=== PATIENT | female | born 1940 | race American Indian/Alaskan Native ===

== ENCOUNTER 2017-01-16 12:17 | Inpatient (IN) | payer MEDICARE ==
--- NOTE | 2017-01-16 13:09 | ED PDOC ---
Arrival/HPI - General Chief Complaint: Back Pain Time Seen by Provider: 01/16/17 12:36 Historian: Patient, Family (Son) - History of Present Illness Narrative History of Present Illness (Text): 01/16/17 13:06 76 year old female whose past medical history includes hypertension, hypercholesterolemia, anemia, gastric ulcers and dementia presents to the emergency department with worsening back pain since yesterday. Son states that she is unable to walk. He found her in bed today complaining about severe back pain. Patient also reported chest pain today that she is unable to describe and son notes that she complains of this and a headache from time to time for weeks. No recent trauma or injury. No urinary or bowel incontinence. No motor weakness. PMD: Dr. Sanches (Non-[facility]) Time/Duration: < week Symptom Onset: Gradual Symptom Course: Unchanged Modifying Factors (Text): None Associated Symptoms (Text): None Past Medical History - Provider Review Nursing Documentation Reviewed: Yes - Infectious Disease Hx of Infectious Diseases: None - Tetanus Immunization Tetanus Immunization: Unknown - Past Medical History Past Medical History: No Previous - Cardiac Hx Hypertension: Yes Hx Pacemaker: No - Pulmonary Hx Pneumonia: Yes - Neurological Hx Alzheimer's Disease: Yes Hx Dementia: Yes - HEENT Hx HEENT Disorder: Yes Hx Cataracts: Yes (BILATERAL CATARACT SURGERY) Hx Glaucoma: Yes Other/Comment: WEARS RX GLASSES - Renal Hx Kidney Stones: Yes - Endocrine/Metabolic Hx Endocrine Disorders: No - Hematological/Oncological Hx Anemia: Yes - Integumentary Hx Dermatological Disorder: No - Musculoskeletal/Rheumatological Hx Arthritis: Yes - Gastrointestinal Hx Gastrointestinal Disorders: Yes - Genitourinary/Gynecological Other/Comment: OVARIAN CYSTS,PARTIAL HYSTERECTOMY - Psychiatric Hx Depression: No Hx Emotional Abuse: No Hx Physical Abuse: No Hx Substance Use: No - Surgical History Hx Orthopedic Surgery: Yes (right arm) - Anesthesia Hx Anesthesia Reactions: No - Suicidal Assessment Feels Threatened In Home Enviroment: No Family/Social History - Physician Review Nursing Documentation Reviewed: Yes Family/Social History: Unknown Family HX Smoking Status: Never Smoked Hx Alcohol Use: No Hx Substance Use: No Hx Substance Use Treatment: No Allergies/Home Meds Allergies/Adverse Reactions: Allergies No Known Allergies Allergy (Verified 01/16/17 12:23) Home Medications: Home Meds Medication Instructions Recorded Confirmed Donepezil [Aricept] 10 mg PO DAILY 01/25/13 01/16/17 Losartan/Hydrochlorothiazide 1 tab PO DAILY 01/25/13 01/16/17 [Hyzaar 12.5 mg-100 mg] Simvastatin [Simvastatin] 20 mg PO DAILY 01/25/13 01/16/17 Propranolol [Inderal] 10 mg PO BID 01/16/17 01/16/17 Sertraline [Zoloft] 15 mg PO HS 01/16/17 01/16/17 amLODIPine [Norvasc] 5 mg PO DAILY 01/16/17 01/16/17 Review of Systems - Review of Systems Systems not reviewed;Unavailable: Dementia Physical Exam - Physical Exam Narrative Physical Exam (Text): Constitutional: No acute distress. Head: Normocephalic. Atraumatic. Eyes: PERRL. ENT: Moist mucous membranes. Neck: Supple. Cardiovascular: Regular rate. Chest: No tenderness. Respiratory: Clear to auscultation bilaterally. GI: Soft. Nontender. Nondistended. Back: No CVA tenderness. No midline tenderness. Bilateral lumbar tenderness. Musculoskeletal: No tenderness or swelling of extremities. Skin: No rash. Neurologic: Alert. Baseline dementia. Moves bilateral legs and arms. Vital Signs Reviewed: Yes Vital Signs Temp Pulse Resp BP Pulse Ox 01/16/17 12:30 98.8 F 63 16 149/90 98 Temperature: Afebrile Blood Pressure: Normal Pulse: Regular Respiratory Rate: Normal Appearance: Positive for: Well-Appearing, Non-Toxic, Comfortable Pain Distress: None Mental Status: Positive for: other (Baseline dementia) Medical Decision Making ED Course and Treatment: Impression: 76 year old female whose past medical history includes hypertension , hypercholesterolemia, anemia, gastric ulcers and dementia presents to the emergency department with worsening back pain since yesterday. Differential Diagnosis include but are not limited to: Plan: -- CT Abdomen/Pelvis, EKG, Chest X-ray -- Tylenol -- Labs -- Reassess and disposition Prior Visits: Notes and results from previous visits were reviewed. Patient last seen in ED on 02/01/13 for abdominal pain and discharged home. Progress Notes: EKG shows NSR at [address]/T wave changes. Interpreted by me. PROCEDURE: CT Abdomen and Pelvis without contrast. Facing Slitter : Karolina Colón MD IMPRESSION: Moderate stool burden in the rectosigmoid colon suggestive of constipation. The bowel is suboptimally seen otherwise. No bowel obstruction. 1.4 centimeters cystic structure in the left adnexa. Follow-up with ultrasound can be obtained if indicated. Small pulmonary nodules as above. If indicated according to protocol, 6-12 month follow-up CT can be obtained. Mild pericardial effusion. CT shows degenerative disease with osteoporosis and scoliosis but no acute findings or fracture. Will keep patient for pain control and evaluation for rehab as patient can not walk or take care of self and will be unsafe discharge. - Lab Interpretations Lab Results: 01/16/17 13:40 01/16/17 13:40 Lab Results 01/16/17 13:40: Urine Color Yellow, Urine Appearance Sl cloudy, Urine pH 7.0, Ur Specific [place] 1.010, Urine Protein 30 H, Urine Glucose (UA) Negative, Urine Ketones Negative, Urine Blood Trace-lysed H, Urine Nitrate Negative, Urine Bilirubin Negative, Urine Urobilinogen 0.2, Ur Leukocyte Esterase Negative , Urine RBC 0 - 2, Urine WBC 0 - 2, Ur Epithelial Cells 0 - 2 01/16/17 13:40: WBC 6.4, RBC 3.86, Hgb 11.2 L, Hct 32.6 L, MCV 84.5, MCH 29.0, MCHC 34.4, RDW 14.1, Plt Count 239, MPV 10.2, Gran % 73.0 H, Lymph % (Auto) 17.4 L, Roberts % (Auto) 9.2 H, Eos % (Auto) 0.2 L, Baso % (Auto) 0.2, Gran # 4.69 , Lymph # 1.1 L, Roberts # 0.6, Eos # 0.0, Baso # 0.01 01/16/17 13:40: Sodium 141, Potassium 3.7, Chloride 100, Carbon Dioxide 28, Anion Gap 17, BUN 11, Creatinine 0.9, Est GFR ( Amer) > 60, Est GFR (Non- Af Amer) > 60, Random Glucose 91, Calcium 9.7, Total Bilirubin 0.8, AST 24, ALT 22, Alkaline Phosphatase 133, Total Creatine Kinase < 20 L, Troponin I < 0.01, Total Protein 8.9 H, Albumin 4.8, Globulin 4.1, Albumin/Globulin Ratio 1.2, Lipase 152 - RAD Interpretation Radiology Orders: 01/16/17 13:08 CHEST PORTABLE [RAD] Stat 01/16/17 13:09 ABD & PELVIS W/O PO OR IV CONT [CT] Stat Web Retailer: Radiologist - EKG Interpretation Interpreted by ED Physician: Yes Type: 12 lead EKG - Medication Orders Current Medication Orders: Discontinued Medications Acetaminophen (Tylenol 325mg Tab) 650 mg PO STAT STA Stop: 01/16/17 13:08 Last Admin: 01/16/17 13:45 Dose: 650 mg - Scribe Statement The provider has reviewed the documentation as recorded by the Jerry Santos Provider Scribe Attestation: All medical record entries made by the Jerry were at my direction and personally dictated by me. I have reviewed the chart and agree that the record accurately reflects my personal performance of the history, physical exam, medical decision making, and the department course for this patient. I have also personally directed, reviewed, and agree with the discharge instructions and disposition. Disposition/Present on Arrival - Present on Arrival Any Indicators Present on Arrival: No History of DVT/PE: No History of Uncontrolled Diabetes: No Urinary Catheter: No History of Decub. Ulcer: No History Surgical Site Infection Following: None - Disposition Have Diagnosis and Disposition been Completed?: Yes Diagnosis: Back pain, Decreased ambulation status Disposition: HOSPITALIZED Disposition Time: 14:25 Patient Plan: Admission Condition: STABLE Referrals: Mckenzie Sanches MD [Primary Care Provider] - Follow up with primary
[2017-01-16 13:48] LABS: ADD MANUAL DIFF? NO
[2017-01-16 13:59] LABS: BASO # 0.01 K/mm3 (0.0-2.0); BASO % 0.2 % (0.0-3.0); EOS % 0.2 % (1.5-5.0); GRAN # 4.69 (1.4-6.5); HEMATOCRIT 32.6 % (36.0-48.0); LYMPH # 1.1 (1.2-3.4); LYMPH % 17.4 % (22.0-35.0); MEAN CELL VOLUME 84.5 fL (80.0-105.0); MEAN CORPUSCULAR HGB CONC 34.4 g/dl (31.0-37.0); MEAN PLATELET VOLUME 10.2 fl (7.0-11.0); MONO # 0.6 (0.1-0.6); MONO % 9.2 % (1.0-6.0); PLATELET COUNT 239 10^3/uL (120.0-450.0); RED CELL DISTRIBUTION WIDTH 14.1 % (11.5-14.5); URINE BILIRUBIN NEGATIVE (NEGATIVE); URINE BLOOD TRACE-LYSED (NEGATIVE); URINE GLUCOSE (UA) NEGATIVE (NEGATIVE); URINE KETONE NEGATIVE (NEGATIVE); URINE LEUKOCYTE ESTERASE NEGATIVE Leu/uL (NEGATIVE); URINE PROTEIN 30 mg/dL (<30 mg/dL); URINE UROBILINOGEN 0.2 E.U./dL (<1 E.U./dL); WHITE BLOOD COUNT 6.4 10^3/ul (4.5-11.0)
[2017-01-16 14:03] LABS: URINE APPEARANCE SL CLOUDY (CLEAR); URINE COLOR YELLOW (YELLOW)
[2017-01-16 14:09] LABS: ALB/GLOB RATIO 1.2 (1.1-1.8); ALKALINE PHOSPHATASE 133 U/L (38-133); ALT/SGPT 22 U/L (7-56); AST/SGOT 24 U/L (15-39); BILIRUBIN,TOTAL 0.8 mg/dL (0.2-1.3); BLOOD UREA NITROGEN 11 mg/dL (7-21); CALCIUM 9.7 mg/dL (8.4-10.5); CARBON DIOXIDE 28 mmol/L (21-33); CHLORIDE 100 mmol/L (98-107); GFR AFRICAN-AMERICAN > 60; GLUCOSE,RANDOM 91 mg/dL (70-110); LIPASE 152 U/L (23-300); POTASSIUM 3.7 mmol/L (3.6-5.0); SODIUM 141 mmol/L (132-148); TOTAL PROTEIN 8.9 g/dL (5.8-8.3)
[2017-01-16 14:14] LABS: URINE EPITHELIAL CELLS 0 - 2 /hpf (0-5); URINE RBC 0 - 2 /hpf (0-2); URINE WBC 0 - 2 /hpf (0-6)
--- NOTE | 2017-01-16 14:19 | CT ---
PROCEDURE: CT Abdomen and Pelvis without contrast. HISTORY: severe back pain COMPARISON: None. TECHNIQUE: Contiguous axial images of the abdomen and pelvis. No oral or IV contrast given. Coronal and Sagittal reformats generated. Please note that due to lack of intravenous and oral contrast, evaluation of soft tissue structures and bowel is limited. Radiation dose: Total exam DLP = 189.27 mGy-cm. This CT exam was performed using one or more of the following dose reduction techniques: Automated exposure control, adjustment of the mA and/or kV according to patient size, and/or use of iterative reconstruction technique. FINDINGS: LOWER THORAX: Two 3-4 millimeter nodules in the left lower lobe. Mild bibasilar atelectatic changes noted. The heart is not significantly enlarged. Small pericardial effusion. Coronary artery calcifications. LIVER: Unremarkable. No gross lesion or ductal dilatation. GALLBLADDER AND BILE DUCTS: Unremarkable. PANCREAS: Pancreatic parenchyma suboptimally seen. Mild dilatation of the pancreatic duct. SPLEEN: Unremarkable. No splenomegaly. ADRENALS: Nodular thickening of the left adrenal gland. Left adrenal nodule measures approximately 1.2 centimeters. KIDNEYS AND URETERS: Both kidneys are symmetric in size. Punctate calcification in the superior pole of the left kidney. No hydronephrosis. The course of the ureters suboptimally seen. BLADDER: Grossly unremarkable. REPRODUCTIVE: Please note that evaluation of gynecologic organs is not optimal on CT imaging. 1.4 centimeter cystic structure in the left adnexa. This is best seen on image 106, series 2. APPENDIX: Appendix not clearly seen. BOWEL: Moderate stool burden in the rectosigmoid colon. No bowel obstruction. Otherwise the bowel is suboptimally seen. Small hiatal hernia. Collapsed stomach. PERITONEUM: Unremarkable. No fluid collection. No free air. LYMPH NODES: No bulky intra-abdominal or intrapelvic lymphadenopathy. Mild retroperitoneal and inguinal region lymph nodes noted. Few scattered mesenteric lymph nodes seen. VASCULATURE: Extremely tortuous aorta. Mild ectasia of the proximal abdominal aorta. Mild atherosclerotic calcification in the abdominal aorta and its main branches. Mild ectasia of bilateral common iliac arteries. BONES: Generalized osteopenia. Heterogeneous density within the osseous structures. Extensive degenerative changes of the spine. No definite significant compressive deformity identified. Extensive facet hypertrophy. Extensive intervertebral disc space narrowing and L2-L3, L3-L4 and L4-L5. OTHER FINDINGS: None. IMPRESSION: Moderate stool burden in the rectosigmoid colon suggestive of constipation. The bowel is suboptimally seen otherwise. No bowel obstruction. 1.4 centimeters cystic structure in the left adnexa. Follow-up with ultrasound can be obtained if indicated. Small pulmonary nodules as above. If indicated according to protocol, 6-12 month follow-up CT can be obtained. Mild pericardial effusion.
[2017-01-16 14:21] LABS: TROPONIN I < 0.01 ng/mL
--- NOTE | 2017-01-16 14:48 | RAD ---
PROCEDURE: CHEST RADIOGRAPH, 1 VIEW HISTORY: r/o PNA COMPARISON: None available. FINDINGS: LUNGS: Clear. PLEURA: No pneumothorax or pleural fluid seen.Biapical pleural parenchymal thickening noted. CARDIOVASCULAR: Normal. OSSEOUS STRUCTURES: The osseous structures demonstrate degenerative changes. VISUALIZED UPPER ABDOMEN: Normal. OTHER FINDINGS: None. IMPRESSION: Clear lungs.Please note that chest radiographs have low sensitivity for small pulmonary nodules. If indicated, chest CT should be obtained.
[2017-01-16] MEDS ORDERED: Acetaminophen 650mg/20.3ml solution UD PO PRN (15:15)
[2017-01-16] MEDS: Meloxicam 7.5 MG TAB PO SCH (16:11)
[2017-01-16 16:36] VITALS: BMI 18.3
[2017-01-17] MEDS: Enoxaparin 40 mg Syringe SC SCH (09:19)
[2017-01-17] MEDS: Meloxicam 7.5 MG TAB PO SCH (09:22)
--- NOTE | 2017-01-17 11:40 | CARD ---
APPROVED REPORT EKG Measurement Heart [id number] <Conclusion> Normal sinus rhythm Normal ECG
[2017-01-17 21:05] VITALS: TEMP 98.1
--- NOTE | 2017-01-17 21:10 | CP.PCM.HP ---
History of Present Illness - History of Present Illness History of Present Illness: A 76 yr old female with hx of HTN, DEMENTIA, arthritis ,HLD dependant on ADL\ IDL came with hx of back pain , sudden unable to walk\move . denies radiation, localized to lower back , 10\10, sharp, aching . denies trauma\fall hx obtained through son. Present on Admission - Present on Admission Any Indicators Present on Admission: No Review of Systems - Constitutional Constitutional: absent: Chills, Fever, Weight Loss - EENT Eyes: absent: Loss of Vision Ears: Decreased Hearing Nose/Mouth/Throat: absent: Dysphagia, Sore Throat - Cardiovascular Cardiovascular: absent: Chest Pain, Dyspnea, Lightheadedness, Syncope - Respiratory Respiratory: absent: Cough, Wheezing, Excessive Mucous Production - Gastrointestinal Gastrointestinal: absent: Abdominal Pain, Change in Bowel Habits, Nausea, Vomiting - Genitourinary Genitourinary: absent: Difficulty Urinating, Nocturia, Urinary Urgency - Musculoskeletal Musculoskeletal: Back Pain, Limited Range of Motion, Myalgias - Integumentary Integumentary: absent: Sores, Wounds - Neurological Neurological: absent: Behavioral Changes, Focal Weakness, Vertigo - Endocrine Endocrine: Fatigue Past Patient History - Infectious Disease Hx of Infectious Diseases: None - Tetanus Immunizations Tetanus Immunization: Unknown - Past Social History Smoking Status: Never Smoked - CARDIAC Hx Hypertension: Yes - PULMONARY Hx Pneumonia: Yes - NEUROLOGICAL Hx Alzheimer's Disease: Yes Hx Dementia: Yes - HEENT Hx HEENT Problems: Yes Hx Cataracts: Yes (BILATERAL CATARACT SURGERY) Hx Glaucoma: Yes Other/Comment: WEARS RX GLASSES - RENAL Hx Kidney Stones: Yes - ENDOCRINE/METABOLIC Hx Endocrine Disorders: No - HEMATOLOGICAL/ONCOLOGICAL Hx Anemia: Yes - INTEGUMENTARY Hx Dermatological Problems: No - MUSCULOSKELETAL/RHEUMATOLOGICAL Hx Falls: No - GASTROINTESTINAL Hx Gastrointestinal Disorders: Yes - GENITOURINARY/GYNECOLOGICAL Other/Comment: OVARIAN CYSTS,PARTIAL HYSTERECTOMY - PSYCHIATRIC Hx Depression: No Hx Emotional Abuse: No Hx Physical Abuse: No - SURGICAL HISTORY Hx Orthopedic Surgery: Yes (right arm) - ANESTHESIA Hx Anesthesia Reactions: No Meds Allergies/Adverse Reactions: Allergies Allergy/AdvReac Type Severity Reaction Status Date / Time No Known Allergies Allergy Verified 01/16/17 12:23 Physical Exam - Constitutional Appears: No Acute Distress - Head Exam Head Exam: ATRAUMATIC, NORMAL INSPECTION - Eye Exam Eye Exam: EOMI, PERRL - ENT Exam ENT Exam: Normal Exam - Neck Exam Neck exam: Positive for: Normal Inspection. Negative for: Lymphadenopathy - Respiratory Exam Respiratory Exam: Clear to Auscultation Bilateral, NORMAL BREATHING PATTERN. absent: Accessory Muscle Use, Wheezes - Cardiovascular Exam Cardiovascular Exam: REGULAR RHYTHM, +S1, +S2. absent: Gallop, RRR - GI/Abdominal Exam GI & Abdominal Exam: Normal Bowel Sounds, Soft. absent: Organomegaly, Tenderness - Extremities Exam Extremities exam: Positive for: normal inspection, pedal pulses present. Negative for: pedal edema - Back Exam Back exam: NORMAL INSPECTION, paraspinal tenderness. absent: CVA tenderness (L) , CVA tenderness (R) Additional comments: lower back - Neurological Exam Neurological exam: Alert Additional comments: oriented to name\place knee and ankle 1 + reflex - Psychiatric Exam Psychiatric exam: Normal Affect, Normal Mood - Skin Skin Exam: Intact, Normal Color Results - Vital Signs Recent Vital Signs: Last Vital Signs Temp 98.1 F 01/17/17 16:00 Pulse 65 01/17/17 16:00 Resp 20 01/17/17 16:00 BP 120/80 01/17/17 16:00 Pulse Ox 100 01/17/17 16:00 - Labs Result Diagrams: 01/16/17 13:40 01/16/17 13:40 - EKG Data EKG Interpreted by: Other - Imaging and Cardiology Chest x-ray Status: Image reviewed by me, Report reviewed by me CT scan - abdomen Status: Report reviewed by me Assessment & Plan (1) Intractable back pain Status: Acute (2) Constipated Status: Acute (3) Dementia Status: Chronic (4) Essential (primary) hypertension Status: Chronic - Assessment and Plan (Free Text) Plan: 1. likley due to lumbar disc disease 2. PT evaluvation 3. pain meds add mobic\tyelenol PRN added tramadol today 4. resume BP meds 5. add colace\high fiber diet. Decision To Admit - Pt Status Changed To: Hospital Disposition Of: Inpatient Admission - Admit Certification Admit to Inpatient:: After my assessment, the patient will require hospitalization for at least two midnights. This is because of the severity of symptoms shown, intensity of services needed, and/or the medical risk in this patient being treated as an outpatient. - . Bed Request Type: Med/Surg Admitting Physician: Dillon Ramírez
[2017-01-18 07:27] LABS: ADD MANUAL DIFF? NO
[2017-01-18 07:30] LABS: BASO # 0.01 K/mm3 (0.0-2.0); BASO % 0.2 % (0.0-3.0); EOS % 0.7 % (1.5-5.0); GRAN # 2.58 (1.4-6.5); HEMATOCRIT 29.9 % (36.0-48.0); LYMPH # 1.5 (1.2-3.4); MEAN CELL VOLUME 84.7 fL (80.0-105.0); MEAN CORPUSCULAR HEMOGLOBIN 28.9 pg (25.0-35.0); MEAN CORPUSCULAR HGB CONC 34.1 g/dl (31.0-37.0); MEAN PLATELET VOLUME 10.2 fl (7.0-11.0); MONO # 0.5 (0.1-0.6); MONO % 11.1 % (1.0-6.0); PLATELET COUNT 213 10^3/uL (120.0-450.0); RED CELL DISTRIBUTION WIDTH 14.2 % (11.5-14.5); WHITE BLOOD COUNT 4.6 10^3/ul (4.5-11.0)
[2017-01-18 07:39] VITALS: BP 138/80; RESP 18; O2SAT 99
[2017-01-18 07:51] LABS: ALB/GLOB RATIO 1.1 (1.1-1.8); BILIRUBIN,TOTAL 0.4 mg/dL (0.2-1.3); CALCIUM 9.3 mg/dL (8.4-10.5); POTASSIUM 3.6 mmol/L (3.6-5.0); TOTAL PROTEIN 7.7 g/dL (5.8-8.3)
[2017-01-18] MEDS: Meloxicam 7.5 MG TAB PO SCH (09:14)
[2017-01-18] MEDS: Enoxaparin 40 mg Syringe SC SCH (09:15)
[2017-01-18 09:18] VITALS: PULSE 62
== END 2017-01-18 14:43 | disposition home health service (06) | DRG 552 ==
LOC: ED 12:17 → ERH 14:46 → 3RSO 15:11
PROVIDERS: ADMIT Internal Medicine; ATTEND Internal Medicine
DX: M46.46 Discitis, unspecified, lumbar region (principal); G30.9 Alzheimer's disease, unspecified; B95.7 Other staphylococcus as the cause of diseases classified elsewhere; F02.80 Dementia in other diseases classified elsewhere, unspecified severity, without behavioral disturbance, psychotic disturbance, mood disturbance, and anxiety; I10 Essential (primary) hypertension; M54.9 Dorsalgia, unspecified; K59.00 Constipation, unspecified; E78.5 Hyperlipidemia, unspecified; H40.9 Unspecified glaucoma; Z87.01 Personal history of pneumonia (recurrent); Z87.442 Personal history of urinary calculi